=== PATIENT | female | born 2000 | race Caucasian/White ===

== ENCOUNTER 2021-04-14 21:35 | Inpatient (IN) | payer OTHER, SELFPAY ==
[~2021-04-14] VITALS: Ht 170.2 cm; Wt 80.2 kg
[2021-04-14 22:05] LABS: HEMOGLOBIN 11.7 g/dl (12.0-15.5); MEAN CORPUSCULAR HEMOGLOBIN 21.2 pg (27.0-33.0); MEAN CORPUSCULAR HGB CONC 29.3 g/dl (32.0-36.5); MEAN CORPUSCULAR VOLUME 72.3 fl (80.0-96.0); PLATELET COUNT, AUTOMATED 321 10^3/uL (150-450); RED BLOOD COUNT 5.53 10^6/uL (4.00-5.40); WHITE BLOOD COUNT 10.2 10^3/uL (4.0-10.0)
[2021-04-14 22:29] LABS: AMPHETAMINES LEVEL URINE NEGATIVE (NEGATIVE); BARBITURATES URINE NEGATIVE (NEGATIVE); BENZODIAZEPINES URINE NEGATIVE (NEGATIVE); CANNABINOIDS URINE NEGATIVE (NEGATIVE); COCAINE METABOLITE URINE NEGATIVE (NEGATIVE); METHADONE URINE NEGATIVE (NEGATIVE); OPIATES URINE NEGATIVE (NEGATIVE); PHENCYCLIDINE URINE NEGATIVE (NEGATIVE)
[2021-04-14 22:32] LABS: HCG, SERUM QUALITATIVE NEGATIVE (NEGATIVE)
[2021-04-14 22:37] LABS: ACETAMINOPHEN LEVEL < 2.0 UG/ML (10.0-30.0); ALBUMIN 4.4 GM/DL (3.2-5.2); ALT/SGPT 18 U/L (12-78); BILIRUBIN,DIRECT 0.1 MG/DL (0.0-0.2); BILIRUBIN,TOTAL 0.4 MG/DL (0.2-1.0); BLOOD UREA NITROGEN 14 MG/DL (7-18); CALCIUM LEVEL 9.4 MG/DL (8.5-10.1); CARBON DIOXIDE LEVEL 27 MEQ/L (21-32); CHLORIDE LEVEL 107 MEQ/L (98-107); CREATININE FOR GFR 0.93 MG/DL (0.55-1.30); ETHYL ALCOHOL (ETHANOL) < 0.003 % (0.000-0.010); GLOMERULAR FILTRATION RATE > 60.0 (>60); GLUCOSE, FASTING 102 MG/DL (70-100); POTASSIUM SERUM 4.1 MEQ/L (3.5-5.1); SALICYLATE LEVEL < 1.7 MG/DL (5.0-30.0); SODIUM LEVEL 141 MEQ/L (136-145)
[2021-04-14] MEDS ORDERED: ACETAMINOPHEN TAB 650MG DOSE (2X325MG) PO PRN (23:10)
[2021-04-14] MEDS ORDERED: MOM 30ML SUSPENSION UDC PO PRN (23:10)
[2021-04-14] MEDS ORDERED: MAALOX 30 ML SUSP *UDC PO PRN (23:10)
[2021-04-14] MEDS ORDERED: traZODone 50 MG TAB PO PRN (23:10)
[2021-04-14 23:56] LABS: RSV AMPLIFICATION NEGATIVE (NEGATIVE)
[2021-04-15] MEDS ORDERED: HOME MED LIST COMPLETE! XX SCH (01:05)
[2021-04-15 04:15] VITALS: BP 114/78
[2021-04-15 16:42] VITALS: BP 139/78
[2021-04-15 16:44] VITALS: BP 139/78
[2021-04-15] MEDS: hydrOXYzine 50 MG TAB PO SCH (18:14)
[2021-04-15] MEDS ORDERED: SERTRALINE HCL 25 MG TABLET PO SCH (21:00)
[2021-04-16] MEDS: hydrOXYzine 50 MG TAB PO SCH ×4 (06:10→18:09)
[2021-04-16 06:21] VITALS: BP 121/55
[2021-04-16 17:23] VITALS: BP 128/74
[2021-04-16] MEDS: SERTRALINE HCL 50 MG TAB PO SCH (20:17)
[2021-04-17] MEDS: hydrOXYzine 50 MG TAB PO SCH ×5 (00:30→23:59)
[2021-04-17 06:44] VITALS: BP 116/70
[2021-04-17 18:31] VITALS: BP 135/67
[2021-04-17] MEDS: SERTRALINE HCL 50 MG TAB PO SCH (20:53)
[2021-04-18] MEDS: hydrOXYzine 50 MG TAB PO SCH ×4 (05:34→23:22)
[2021-04-18 06:32] VITALS: BP 125/58
[2021-04-18 16:10] VITALS: BP 114/56
[2021-04-18] MEDS: SERTRALINE HCL 50 MG TAB PO SCH (20:15)
[2021-04-19] MEDS: hydrOXYzine 50 MG TAB PO SCH ×4 (05:50→23:11)
[2021-04-19 06:42] VITALS: BP 131/61
[2021-04-19] MEDS ORDERED: NICOTINE 14 MG/24 HR TRANSDERMAL TD PRN (10:00)
[2021-04-19 16:16] VITALS: BP 135/75
[2021-04-19] MEDS: SERTRALINE HCL 50 MG TAB PO SCH (20:07)
[2021-04-20] MEDS: hydrOXYzine 50 MG TAB PO SCH ×3 (05:56→17:16)
[2021-04-20 06:25] VITALS: BP 128/62
[2021-04-20 16:38] VITALS: BP 126/73
[2021-04-20] MEDS: SERTRALINE HCL 50 MG TAB PO SCH (20:20)
[2021-04-21] MEDS: hydrOXYzine 50 MG TAB PO SCH ×5 (06:27→23:36)
[2021-04-21 06:37] VITALS: BP 127/61
[2021-04-21 17:51] VITALS: BP 140/65
[2021-04-21] MEDS: SERTRALINE HCL 50 MG TAB PO SCH (20:14)
[2021-04-22] MEDS: hydrOXYzine 50 MG TAB PO SCH ×2 (06:14→11:58)
[2021-04-22 06:52] VITALS: BP 119/55
[2021-04-22] MEDS ORDERED: HYDR50TA70 PO (10:17)
[2021-04-22] MEDS ORDERED: SERT50TA29 PO (10:17)
[2021-04-22] MEDS ORDERED: NICO14PA TD (10:17)
== END 2021-04-22 12:30 | disposition home or self-care (01) | DRG 751 ==
LOC: M ED 21:35 → EDSEX 21:35 → M ED INP 23:10 → M PSY 04-15 04:01
PROVIDERS: ADMIT Psychiatry & Neurology Psychiatry; ATTEND Psychiatry & Neurology Psychiatry
DX: F32.0 Major depressive disorder, single episode, mild (principal); F41.9 Anxiety disorder, unspecified; F17.210 Nicotine dependence, cigarettes, uncomplicated; R45.851 Suicidal ideations; Z63.4 Disappearance and death of family member; Z63.0 Problems in relationship with spouse or partner; Z20.822 Contact with and (suspected) exposure to COVID-19; Z90.49 Acquired absence of other specified parts of digestive tract